=== PATIENT | male | born 1975 | race Caucasian/White ===

== ENCOUNTER 2017-09-27 12:39 | Emergency (ER) | payer MEDICAID, OTHER | END 2017-09-27 13:53 | disposition home or self-care (01) | LOC: E/R 12:39 | DX: S00.06XA Insect bite (nonvenomous) of scalp, initial encounter (principal); S00.461A Insect bite (nonvenomous) of right ear, initial encounter; W57.XXXA Bitten or stung by nonvenomous insect and other nonvenomous arthropods, initial encounter; Y92.009 Unspecified place in unspecified non-institutional (private) residence as the place of occurrence of the external cause | CPT/HCPCS: 99283; Z7502 ==